=== PATIENT | female | born 1985 | race Caucasian/White ===

== ENCOUNTER → 2025-02-03 11:56 | Outpatient (CLI) | payer OTHER, SELFPAY ==
[2025-02-03 12:59] LABS: Add Manual Diff / Slide Review NO; Hematocrit 37.3 % (36-46); Hemoglobin 12.3 g/dL (12.0-16.0); Lymphocytes Absolute Auto 1400 /uL (1100-4500); Mean Corpuscular HGB Conc 32.9 % (30-36); Mean Corpuscular Hemoglobin 26.8 PG (26-34); Mean Corpuscular Volume 81.5 fL (80-100); Platelet Count 259 X10^3/uL (150-400)
[2025-02-03 13:53] LABS: Alanine Aminotransferase 16 IU/L (<35); Albumin 4.0 g/dL (3.5-5.0); Albumin Globulin Ratio 1.4 (1.0-2.8); Alkaline Phosphatase 58 U/L (38-126); Blood Urea Nitrogen 13 mg/dL (7-17); Calcium 9.7 mg/dL (8.4-10.2); Carbon Dioxide 25 mmol/L (22-32); Chloride 104 mmol/L (98-107); Estimated Glomerular Filt Rate > 60 mL/min (>60); Globulin 2.8 g/dL (1.7-4.1); Glucose 80 mg/dL (70-99); HEMOLYSIS < 15 (0-50); Potassium 4.2 mmol/L (3.4-5.1); Sodium 136 mmol/L (137-145); Total Protein 6.8 g/dL (6.3-8.2)
[2025-02-03 14:22] LABS: TSH w/ Reflex to FT4 2.42 uIU/mL (0.47-4.68)
== END ==
PROVIDERS: PCP Family Medicine; Referring Provider Family Medicine; Visit Provider Family Medicine
DX: I10 Essential (primary) hypertension (principal); N64.4 Mastodynia; R00.2 Palpitations; L65.9 Nonscarring hair loss, unspecified; Z82.79 Family history of other congenital malformations, deformations and chromosomal abnormalities
CPT/HCPCS: 36415; 80053; 84443; 85025

== ENCOUNTER → 2025-02-05 14:48 | Outpatient (CLI) | payer OTHER, SELFPAY ==
--- NOTE | 2025-02-05 14:49 | DI.ECHO.S_ITS ---
[place] [facility] : : [address] : : [place] : : [id number] : : Phone: [phone] Echocardiogram Report + + :Name: LONNIE RASCON Study Date: 02/05/2025 Height: 64 in : :[facility] ReadingLocation: Weight: 156 lb : : Gender: Female BSA: 1.8 m2 : :: 1985 Age: 40 yrs BP: 136/92 mmHg: :Reason For Study: PALPITATIONS : :Ordering Physician: RIVER, : :CARLOS Lopez Performed By: Cy Cueto : :Referring: CARLOS HOLMAN R : + + Interpretation Summary The ejection fraction is estimated to be 55-60%. There is no significant valvular heart disease. Procedure: A two-dimensional transthoracic echocardiogram with color flow and Doppler was performed. The study quality was technically good. There is no prior echocardiogram noted for this patient. The patient was in normal sinus rhythm during the exam. Left Ventricle: The left ventricle is normal in size. There is normal left ventricular wall thickness. There is no ventricular septal defect visualized. The ejection fraction is estimated to be 55-60%. There are no focal wall motion abnormalities. Normal diastolic function. Right Ventricle: The right ventricle is normal in size and function. Atria: The left atrial size is normal. Right atrial size is normal. There is no Doppler evidence for an interatrial shunt. Mitral Valve: The mitral valve leaflets appear normal. There is no evidence of stenosis, fluttering, or prolapse. There is trace mitral regurgitation. Aortic Valve: The aortic valve is trileaflet. The aortic valve opens well. No aortic regurgitation is present. Tricuspid Valve: The tricuspid valve leaflets are thin and pliable. There is a trace or physiologic amount of tricuspid regurgitation. Pulmonic Valve: The pulmonic valve is not well seen, but is grossly normal. There is trace pulmonic regurgitation. Great Vessels: The aortic root is normal size. The dimensions of the ascending aorta are normal. The pulmonary artery is normal size. The IVC is of normal diameter and collapses greater than 50% with a sniff. This suggests a low right atrial pressure of 3 mm Hg. Pericardium/ Pleura There is no pericardial effusion. There is no pleural effusion. MMode/2D Measurements & Calculations LVIDd: 5.2 cm LVOT diam: 1.9 cm LVIDs: 3.5 cm Ao root diam: 2.9 cm FS: 32.1 % asc Aorta Diam: 3.2 cm EPSS: 0.82 cm Ao Arch Diam (Prox Trans): 1.2 cm IVSd: 0.77 cm LVPWd: 0.67 cm LV rhoades. diameter/BSA (cm/m^2): 2.9 LV sys. diameter/BSA (cm/m^2): 2.0 LA A2 area: 14.7 cm2 RA long axis: 3.8 cm LA A4 area: 15.4 cm2 RA area: 11.3 cm2 LA length (vol): 5.2 cm RA vol: 28.5 ml LA vol: 36.9 ml RA : 16.2 ml/m2 LA vol index: 21.0 ml/m2 IVC diam: 1.8 cm RVD1 (basal): 3.0 cm RVD2 (mid): 2.0 cm TAPSE: 2.0 cm Doppler Measurements & Calculations Ao V2 max: 151.5 cm/sec LVOT Max Elgin: 123.3 cm/sec Ao V2 mean: 108.0 cm/sec LV V1 max P.1 mmHg Ao max P.2 mmHg LV V1 VTI: 25.3 cm Ao mean P.2 mmHg MARIA ELENA(I,D): 2.2 cm2 Ao V2 VTI: 31.7 cm MARIA ELENA(V,D): 2.2 cm2 sev ratio: 0.80 MARIA ELENA indexed to BSA (cm^2/m^2): 1.2 MV E max elgin: 86.9 cm/sec PA V2 max: 89.3 cm/sec MV A max elgin: 68.3 cm/sec PA V2 mean: 66.2 cm/sec MV E/A: 1.3 PA mean P.9 mmHg Med Peak E' Elgin: 7.1 cm/sec PA pr(Accel): 12.2 mmHg E/E' med: 12.2 Lat Peak E' Elgin: 11.4 cm/sec E/E' lat: 7.6 E/e' average: 9.9 MV dec time: 0.14 sec SV(LVOT): 69.4 ml Reading Physician:04:24 PM
== END ==
LOC: ECHO 14:49
PROVIDERS: PCP Family Medicine; Referring Provider Family Medicine; Visit Provider Family Medicine
DX: R00.2 Palpitations (principal); Z82.79 Family history of other congenital malformations, deformations and chromosomal abnormalities
CPT/HCPCS: 93306

== ENCOUNTER → 2025-02-09 13:25 | Outpatient (CLI) | payer OTHER, SELFPAY | LOC: CAR 13:26 | PROVIDERS: PCP Family Medicine; Referring Provider Family Medicine; Visit Provider Family Medicine | DX: R00.2 Palpitations (principal) | CPT/HCPCS: 93246 ==

== ENCOUNTER → 2025-02-24 07:11 | Outpatient (CLI) | payer OTHER, SELFPAY ==
--- NOTE | 2025-02-24 07:12 | DI.MRI.S_ITS ---
MR breast BI wo/w con: 02/24/2025. BI-RADS: 1 CLINICAL: 40-year old female for bilateral diagnostic breast MRI. Current reported family history of breast cancer: mother. PRIOR EXAMS 09/19/2024, 03/30/2024, 04/24/2023. MRI TECHNIQUE Bilateral breast MRI was performed on a 1.5 Gianna magnet using a dedicated breast coil with mild compression. Axial T1 and T2 STIR sequences were obtained. Dynamic contrast enhanced VIBRANT fat-suppressed sequences were obtained. Delayed sagittal high resolution or sagittal reconstructed isotropic sequence was also obtained. Subtraction images and maximum intensity projection images were obtained. The study was evaluated using [employer] software. IV Contrast: 20 ml ProHance. FIBROGLANDULAR TISSUE Bilateral: B. Scattered fibroglandular tissue. BACKGROUND PARENCHYMAL ENHANCEMENT Bilateral: Mild symmetrical background parenchymal enhancement. BREAST FINDINGS No MRI finding to explain bilateral pain and swelling. Bilateral: Benign-appearing axillary lymph nodes noted. No suspicious mass, suspicious non-mass enhancement, or other concerning finding identified. CHEST FINDINGS No axillary or internal mammary chain adenopathy. No abnormality seen in the visible portions of the heart, lungs, chest wall, and liver. IMPRESSION: * No evidence of malignancy. RECOMMENDATIONS Bilateral * Annual screening mammography. OVERALL ASSESSMENT CATEGORY BI-RADS-1: Negative. ELECTRONICALLY SIGNED: Bridget Diego M.D. on 02/25/2025 at 03:18:14 PM PT Interpreting Station ID: [id number]
== END ==
PROVIDERS: PCP Family Medicine; Referring Provider Family Medicine; Visit Provider Family Medicine
DX: N64.4 Mastodynia (principal); Z80.3 Family history of malignant neoplasm of breast
CPT/HCPCS: 77049; A9579

== ENCOUNTER → 2025-05-14 10:43 | Outpatient (CLI) | payer OTHER, SELFPAY ==
--- NOTE | 2025-05-14 10:44 | DI.US.S_ITS ---
PROCEDURE: US PELVIC COMPLETE INDICATIONS: 2.1 cm T2 heterogeneous lesion in the left ovary at WH TECHNIQUE: Real-time scanning was performed of the pelvic organs, with image documentation. Additional endovaginal scanning was necessary due to incomplete visualization of the adnexal and endometrial structures by transabdominal scanning. COMPARISON: Outside Facility, US, US PELVIC COMPLETE, 09/01/2024, 17:10. FINDINGS: Uterus: Uterus is retroverted and normal in size at 6.2 x 4.5 x 4.2 cm. The myometrium is homogeneous. The endometrium measures 8 mm combined thickness. Ovaries: The right ovary is surgically absent. The left ovary measures 2.8 x 1.8 x 1.4 cm, with a calculated ovarian volume of 4 cc. Solid-appearing lesion within the left ovary measuring 1.6 x 1.7 x 1.1 cm with some vascularity. Other: No pathologic free abdominal or pelvic fluid. IMPRESSION: Solid appearing lesion within the left ovary measuring 1.7 cm. Recommend correlation with prior MRI and follow-up ultrasound to assess stability. Right ovary is surgically absent. Uterus is normal in appearance. We strive to produce accurate, complete, and clear reports of imaging services. To assist us in improving patient care, this report was composed using standard report templates and voice recognition software. Therefore, it may contain abnormal punctuation, insertions and/or omissions. Occasional wrong-word or sound-alike substitutions may occur. Though we review the report and make efforts to correct it, we do recommend that the report be read carefully in proper context to recognize any text inaccuracies. Dictated by: Iam Montalvo M.D. on 05/14/2025 at 12:56 Approved by: Iam Montalvo M.D. on 05/14/2025 at 12:59
== END ==
LOC: US 10:43
PROVIDERS: PCP Family Medicine; Referring Provider Family Medicine; Visit Provider Family Medicine
DX: N83.9 Noninflammatory disorder of ovary, fallopian tube and broad ligament, unspecified (principal); Z90.721 Acquired absence of ovaries, unilateral
CPT/HCPCS: 76830; 76856; 93975

== ENCOUNTER → 2025-06-15 09:13 | Outpatient (CLI) | payer OTHER, SELFPAY ==
--- NOTE | 2025-06-15 09:13 | DI.NM.S_ITS ---
PROCEDURE: NM RAFAEL PERF SPECT R&S PHARM Rest and pharmacological stress myocardial perfusion SPECT with gated imaging and ejection fraction RADIOPHARMACEUTICAL: 11.4 mCi Tc-99m tetrafosmin IV at rest and 27.5 mCi Tc-99m tetrafosmin IV at peak effect of pharmacological stress. [id number] was performed. INDICATIONS: Dizziness and chest pain, not mobile TECHNIQUE: Radiopharmaceutical was injected at peak stress test, and also at rest. SPECT images were obtained. SPECT myocardial perfusion images were displayed in short axis, horizontal long axis, and vertical long axis views. Gated images were reviewed using [employer] software. COMPARISON: None. CARDIAC STRESS: A pharmacologic stress test was performed under the supervision of an attending staff, using an infusion of regadenoson 0.4 mg IV. Hemodynamic data: There is normal blood pressure and heart rate response to pharmacologic stress. Symptoms: The patient denied anginal chest pain. EKG: No diagnostic changes of ischemia; no ectopy. FINDINGS: Raw data: There is good myocardial uptake of radiotracer. No significant motion artifacts. Urdp-ue-ymwuw ratio is 0.2 (normal is less than 0.38 for tetrafosmin tracer). Left ventricle function: Gated images demonstrate normal left ventricular wall thickening. No segmental wall motion abnormalities. No transient ischemic dilation; TID is 0 to (normal less than 1.3). Left ventricle resting end diastolic volume is 82 mL. Left ventricle stress ejection fraction is 73%; normal range is above 45%. Myocardial perfusion: There is a small size, mild intensity anterior wall defect that is worse in the resting images and resolves in prone images. No reversible perfusion defects. IMPRESSION: Low risk study. No evidence of pharmacologic induced ischemia or scar. Normal LV size with normal function. Dictated by: Ирина Valdovinos D.O. on 06/15/2025 at 17:01 Approved by: Ирина Valdovinos D.O. on 06/15/2025 at 17:04
== END ==
LOC: NUCM 09:13
PROVIDERS: PCP Family Medicine; Referring Provider Family Medicine; Visit Provider Family Medicine
DX: R42 Dizziness and giddiness (principal); R07.9 Chest pain, unspecified; R00.2 Palpitations
CPT/HCPCS: 78452; 93017; A9502; J2785

== ENCOUNTER → 2025-06-16 14:45 | Outpatient (CLI) | payer OTHER, SELFPAY ==
[2025-06-18 14:36] LABS: Trichomoas vaginalis Negative (Negative)
== END ==
PROVIDERS: PCP Family Medicine; Visit Provider Obstetrics & Gynecology
DX: R10.20 Pelvic and perineal pain unspecified side (principal)
CPT/HCPCS: 81514; 87086

== ENCOUNTER → 2025-07-14 09:16 | Outpatient (CLI) | payer OTHER, SELFPAY ==
--- NOTE | 2025-07-14 09:17 | DI.US.S_ITS ---
PROCEDURE: US PELVIC COMPLETE INDICATIONS: left ovarian cyst - f/u US TECHNIQUE: Real-time scanning was performed of the pelvic organs, with image documentation. Additional endovaginal scanning was necessary due to incomplete visualization of the adnexal and endometrial structures by transabdominal scanning. COMPARISON: [facility], US, US PELVIC COMPLETE, 05/14/2025, 10:58. [facility], US, US PELVIC COMPLETE, 06/16/2025, 14:24. FINDINGS: Uterus: Uterus is anteverted and normal in size at 7.6 x 5 x 3.9 cm. The myometrium is homogeneous. The endometrium measures 9 mm combined thickness. Ovaries: Post right oophorectomy. The left ovary measures 2.9 x 2.2 x 1.7 cm, with a calculated ovarian volume of 6 cc. The ovaries have a normal sonographic appearance. Less than 12 follicles can be seen in the left ovary. Left adnexal 1.5 x 1.4 x 1 cm peripherally hypoechoic, centrally anechoic finding with peripheral vascularity on color Doppler. No adnexal masses are seen. Other: No pathologic free abdominal or pelvic fluid. IMPRESSION: Left adnexal 1.5 cm focus con mild which may correspond to the prior reported lesion seen on MRI and prior ultrasound, with imaging characteristics more consistent with a corpus luteum. Recommend follow-up ultrasound in 4-6 weeks. We strive to produce accurate, complete, and clear reports of imaging services. To assist us in improving patient care, this report was composed using standard report templates and voice recognition software. Therefore, it may contain abnormal punctuation, insertions and/or omissions. Occasional wrong-word or sound-alike substitutions may occur. Though we review the report and make efforts to correct it, we do recommend that the report be read carefully in proper context to recognize any text inaccuracies. Dictated by: Tomas Walter M.D. on 07/14/2025 at 15:31 Approved by: Tomas Walter M.D. on 07/14/2025 at 15:35
== END ==
LOC: US 09:17
PROVIDERS: PCP Family Medicine; Referring Provider Obstetrics & Gynecology; Visit Provider Obstetrics & Gynecology
DX: N83.202 Unspecified ovarian cyst, left side (principal); N94.9 Unspecified condition associated with female genital organs and menstrual cycle; Z90.721 Acquired absence of ovaries, unilateral
CPT/HCPCS: 76830; 76856